=== PATIENT | female | born 1990 ===

== ENCOUNTER → 2017-12-28 | Outpatient (REF) | payer BC | LOC: M LAB REF 17:39 | DX: E04.2 Nontoxic multinodular goiter (principal) ==

== ENCOUNTER → 2019-09-27 | Outpatient (REF) | payer OTHER | LOC: M LAB REF 06:44 | PROVIDERS: ATTEND Internal Medicine Endocrinology, Diabetes & Metabolism | DX: E04.2 Nontoxic multinodular goiter (principal) ==